=== PATIENT | female | born 1955 | race Two or more races ===

== ENCOUNTER 2017-03-09 19:06 | Emergency (ER) | payer OTHER ==
[~2017-03-09] VITALS: Ht 177.8 cm; Wt 81.6 kg
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
--- NOTE | 2017-03-09 19:29 | NUR ---
[facility]UBIN GUALLPA AT BEDSIDE FOR EVAL.
--- NOTE | 2017-03-09 19:32 | NUR ---
[facility] AT BEDSIDE FOR REPORT
--- NOTE | 2017-03-09 19:55 | NUR ---
PT TO RADIOLOGY FOR CT HEAD AND XRAYS
--- NOTE | 2017-03-09 20:19 | NUR ---
PT RETURNED FROM CT.
--- NOTE | 2017-03-09 20:33 | NUR ---
VERNELL PHOENIX AT BEDSIDE SPEAKING TO PT REGARDING RESULTS.
--- NOTE | 2017-03-09 20:48 | NUR ---
Patient discharged to home in stable condition. Written and verbal after care instructions given. Patient verbalizes understanding of instruction. ambulatory with a steady gait
[2017-03-09 20:49] VITALS: BP 126/88
== END 2017-03-09 20:50 | disposition home or self-care (01) ==
LOC: ER 19:09
DX: M54.6 Pain in thoracic spine (principal); R51 Headache; G89.29 Other chronic pain; Z88.8 Allergy status to other drugs, medicaments and biological substances; Y04.8XXA Assault by other bodily force, initial encounter; Y93.89 Activity, other specified; Y92.89 Other specified places as the place of occurrence of the external cause; Y99.8 Other external cause status
CPT/HCPCS: 70450; 71010; 72074; 99284; A4606; Z7610